=== PATIENT | female | born 1965 | race Caucasian/White ===

== ENCOUNTER 2018-02-16 20:29 | Inpatient (IN) ==
--- NOTE | 2018-02-16 20:57 | Emergency Department Note ---
Disposition Clinical Impression: Acute ischemic stroke Disposition: Admitted As Inpatient Condition: Fair Time of Disposition: 22:19 General Adult HPI - General Chief complaint: ED Neuro Symptoms/Deficit Stated complaint: had mri showed small stroke sent here Time Seen by Provider: 02/16/18 20:39 Source: patient Limitations: no limitations Nursing Notes Reviewed: Yes Vital Signs Reviewed: Yes - History of Present Illness HPI Narrative: Mrs. Escamilla, 52-year-old female, presents from home after a phone call from her primary care physician telling her she has had a stroke and presented to the emergency department. Patient's primary care physician ordered an outpatient MRI for evaluation a history of chronic intractable headache is significantly found a tiny punctate acute infarct in the left thalamus as well as chronic small vessel changes. Patient did not have any focal motor deficit over the past month. Her primary concern is her left occipitally sharp stabbing headache and the finding of a left thalmic acute infarct. PMH: Hypertension, type 2 diabetes poorly controlled per patient. History of chronic migraine. ROS: Positive: Left occipitally headache as above. Negative: Noticeable motor deficit, drooping of face, slurring of speech, difficulty chewing or swallowing, history of cardiac arrhythmia, history of coagulopathy, history of CVA or TIA, history of trauma. No history of ACS. Pain Scale: 6 - Related Data Home Medications Medication Instructions Recorded Confirmed Acetaminophen/Butalbital/Caffe 1 each PO Q6HR PRN 01/30/16 01/30/16 [Fioricet] Albuterol Sulfate [Albuterol 90 mcg IH Q4HR PRN 01/30/16 01/30/16 Inhaler] Aspirin [Adult Low Dose Aspirin EC] 81 mg PO DAILY 01/30/16 01/30/16 Dicyclomine [Bentyl] 20 mg PO QID 01/30/16 01/30/16 Olmesartan/Hydrochlorothiazide 1 each PO DAILY 01/30/16 01/30/16 [Benicar Hct 40-25 mg Tablet] Promethazine [Phenergan] 25 mg PO Q8H PRN 01/30/16 01/30/16 FLUoxetine HCl [Prozac] 20 mg PO DAILY 02/16/18 02/16/18 Topiramate [Topiramate] 25 mg PO HS 02/16/18 02/16/18 Allergies Allergy/AdvReac Type Severity Reaction Status Date / Time cholestyramine AdvReac Mild Vomiting Verified 02/16/18 21:36 clarithromycin [From Biaxin] AdvReac Hives Verified 02/16/18 21:36 colesevelam [From WelChol] AdvReac Hives Verified 02/16/18 21:36 felodipine [From Plendil] AdvReac Hives Verified 02/16/18 21:36 moxifloxacin [From Avelox] AdvReac Hives Verified 02/16/18 21:36 oseltamivir [From Tamiflu] AdvReac See Verified 02/16/18 21:36 Comments oxybutynin [From Ditropan] AdvReac Hives Verified 02/16/18 21:36 rosuvastatin [From Crestor] AdvReac Hives Verified 02/16/18 21:36 tolterodine [From Detrol] AdvReac Hives Verified 02/16/18 21:36 All systems ED: reviewed and negative except as stated. Review of Systems: As Per HPI Past Medical History - Past Medical History Medical history: Reports: asthma, diabetes, GERD, hypertension, migraine Surgical history: Reports: appendectomy, cholecystectomy, hysterectomy, orthopedic, other, other Psychiatric history: Reports: no psych history - Social History Smoking Status: Never smoker Smokeless Tobacco Status: No Alcohol use: Reports: none Drug use: Reports: none Physical Exam Vital Signs Reviewed General: Patient is alert, oriented, and in no acute distress. Head: atraumatic, normocephalic Eye: normal appearance, right pupil 3 mm and round and reactive to light, left pupil 4 mm and round and reactive to light, EOMI, no scleral icterus, no conjunctival injection ENT: mucous membranes moist, normal external ear exam Neck: normal inspection, trachea midline, full ROM Chest: normal inspection, symmetric chest rise Respiratory: Good respiratory effort. Bilateral breath sounds are clear without wheezing, crackles, or rhonchi. Cardiovascular: Regular rate and rhythm. No clicks, rubs, gallops, or murmors. Normal heart sounds. Abdomen: Bowel sounds present normoactive x-4 quadrants. Abdomen is soft, nondistended, and nontender. No guarding or rebound. No organomegaly noted. Musculoskeletal: Spontaneously moving all extremities. Strength 5/5 and equal in upper and lower extremities. Skin: warm, dry, intact. Neuro: Alert and oriented x4. Sensation light touch intact. No limb drift in upper or lower extremities. No pronator drift. Negative finger to nose, negative [id number]. Cranial nerves II through XII intact with very mild decrease in sensation to light touch over left cranial nerve V1, V2, V3. Patient is able to clearly her repeat "no if's, ands, or buts." No slurring of speech. Patient answers questions without hesitation. No facial asymmetry. Psych: Patient's affect is appropriate for situation. - General Limitations: no limitations General appearance: alert, in no apparent distress Course Course Narrative: 20:50 Discussed the patient with the on-call neurologist, Dr. Delgadillo. We discussed the patient's clinical picture and her MRI findings in the context of her headache as well as chronic hypertension and diabetes. Increase remission for continued evaluation and workup. He recommends Plavix 75 mg as well as the patient's daily aspirin at this time. Cardiac echo dated 04/10/17 shows LVEF 65%. I discussed the patient with the admitting hospitalist, Dr. Ragland, who agrees to accept the patient for continued evaluation and management. Vital Signs Temperature 98.1 F 02/16/18 20:34 Pulse Rate 102 02/16/18 20:34 Respiratory Rate 16 02/16/18 20:34 Blood Pressure 176/110 02/16/18 20:34 O2 Sat by Pulse Oximetry 95 02/16/18 20:34 Temperature 98.1 F 02/16/18 20:34 Pulse Rate 102 02/16/18 20:34 Respiratory Rate 16 02/16/18 20:34 Blood Pressure 176/110 02/16/18 20:34 O2 Sat by Pulse Oximetry 95 02/16/18 20:34 Oxygen Delivery Oxygen Delivery Room Air NIH Stroke Scale - Level of Consciousness LOC: Alert - LOC Questions LOC Questions: Answers both correctly - LOC Commands LOC Commands: Performs both correctly - Best Gaze Best Gaze: Normal - Visual Visual: No visual loss - Facial Palsy Facial Palsy: Normal - Motor Arms Motor Arm-Left: No drift for 10 seconds Motor Arm-Right: No drift for 10 seconds - Motor Legs Motor Leg-Left: No drift for 5 seconds Motor Leg-Right: No drift for 5 seconds - Limb Ataxia Limb Ataxia: Absent of affected limb too weak to perform exam - Sensory Sensory: Mild to moderate loss, "not as sharp" - Best Language Best Language: No aphasia - Dysarthria Dysarthria: Normal - Extinction and Inattention Extinction and Inattention: Normal - NIHSS Total Score NIHSS Total Score: 1
[2018-02-16] MEDS ORDERED: Aspirin 81 MG TAB.CHEW PO SCH (21:00)
[2018-02-16 21:37] LABS: Basophils # 0.1 K/mcL (0.0-0.2); Basophils % 0.9 %; Eosinophils # 0.2 K/mcL (0.0-0.6); Eosinophils % 2.5 %; Hematocrit 41.2 % (35.3-44.9); Hemoglobin 13.8 g/dL (11.5-15.4); Immature Granulocytes % 0.3 % (0-4); Lymphocytes # 2.7 K/mcL (0.6-4.6); Lymphocytes % 41.8 %; Mean Corpuscular HGB Conc 33.5 g/dL (31.6-35.5); Mean Corpuscular Hemoglobin 29.3 pg (28.0-33.3); Mean Corpuscular Volume 87.5 fL (83.0-100.0); Mean Platelet Volume 10.1 fL (9.4-12.4); Monocytes # 0.5 K/mcL (0.0-1.3); Monocytes % 7.6 %; Platelet Count 276 K/mcL (140-400); Red Blood Count 4.71 M/mcL (3.82-4.97); Red Cell Distribution Width 12.6 % (11.5-14.5); Segmented Neutrophils % 46.9 %
[2018-02-16 21:45] LABS: Prothrombin Time 11.2 Seconds (9.4-12.1)
[2018-02-16 21:55] LABS: BUN/Creatinine Ratio 21 (6-26); Blood Urea Nitrogen 15 mg/dL (6-20); Calcium 9.8 mg/dL (8.6-10.3); Carbon Dioxide 23 mEq/L (23-29); Chloride 105 mEq/L (98-107); Glucose 208 mg/dL (70-105); Osmolality,Calculated 293 (280-300); Potassium 3.6 mEq/L (3.5-5.1); Sodium 138 mEq/L (136-145); eGFR For African Americans > 60 (> 60); eGFR For Non-African Americans > 60 (> 60)
--- NOTE | 2018-02-16 23:02 | Emergency Department Note ---
Disposition Clinical Impression: Acute ischemic stroke Disposition: Admitted As Inpatient Condition: Fair Forms: ED Satisfaction Letter General Adult HPI - General Chief complaint: ED Neuro Symptoms/Deficit Stated complaint: had mri showed small stroke sent here Time Seen by Provider: 02/16/18 20:39 Source: patient Limitations: no limitations Nursing Notes Reviewed: Yes Vital Signs Reviewed: Yes - History of Present Illness Pain Scale: 6 - Related Data Home Medications Medication Instructions Recorded Confirmed Acetaminophen/Butalbital/Caffe 1 each PO Q6HR PRN 01/30/16 02/16/18 [Fioricet] Albuterol Sulfate [Albuterol 90 mcg IH Q4HR PRN 01/30/16 02/16/18 Inhaler] Aspirin [Adult Low Dose Aspirin EC] 81 mg PO DAILY 01/30/16 02/16/18 Dicyclomine [Bentyl] 20 mg PO QID 01/30/16 02/16/18 Olmesartan/Hydrochlorothiazide 1 each PO DAILY 01/30/16 02/16/18 [Benicar Hct 40-25 mg Tablet] Promethazine [Phenergan] 25 mg PO Q8H PRN 01/30/16 02/16/18 FLUoxetine HCl [Prozac] 20 mg PO DAILY 02/16/18 02/16/18 Topiramate [Topiramate] 25 mg PO HS 02/16/18 02/16/18 Allergies Allergy/AdvReac Type Severity Reaction Status Date / Time cholestyramine AdvReac Mild Vomiting Verified 02/16/18 21:36 clarithromycin [From Biaxin] AdvReac Hives Verified 02/16/18 21:36 colesevelam [From WelChol] AdvReac Hives Verified 02/16/18 21:36 felodipine [From Plendil] AdvReac Hives Verified 02/16/18 21:36 moxifloxacin [From Avelox] AdvReac Hives Verified 02/16/18 21:36 oseltamivir [From Tamiflu] AdvReac See Verified 02/16/18 21:36 Comments oxybutynin [From Ditropan] AdvReac Hives Verified 02/16/18 21:36 rosuvastatin [From Crestor] AdvReac Hives Verified 02/16/18 21:36 tolterodine [From Detrol] AdvReac Hives Verified 02/16/18 21:36 Past Medical History - Past Medical History Medical history: Reports: asthma, diabetes, GERD, hypertension, migraine Surgical history: Reports: appendectomy, cholecystectomy, hysterectomy, orthopedic, other, other Psychiatric history: Reports: no psych history - Social History Smoking Status: Never smoker Smokeless Tobacco Status: No Alcohol use: Reports: none Drug use: Reports: none Physical Exam - General Limitations: no limitations General appearance: alert, in no apparent distress Course Vital Signs Temperature 98.1 F 02/16/18 20:34 Pulse Rate 102 02/16/18 20:34 Respiratory Rate 16 02/16/18 20:34 Blood Pressure 176/110 02/16/18 20:34 O2 Sat by Pulse Oximetry 95 02/16/18 20:34 Temperature 98.1 F 02/16/18 20:34 Pulse Rate 102 02/16/18 20:34 Respiratory Rate 16 02/16/18 20:34 Blood Pressure 176/110 02/16/18 20:34 O2 Sat by Pulse Oximetry 95 02/16/18 20:34 Oxygen Delivery Oxygen Delivery Room Air Medical Decision Making - Lab Data Result diagrams: 02/16/18 21:19 02/16/18 21:19 Lab Results 02/16/18 02/16/18 02/16/18 Range/Units 21:19 21:19 21:19 WBC 6.4 (4.3-11.1) K/mcL RBC 4.71 (3.82-4.97) M/mcL Hgb 13.8 (11.5-15.4) g/dL Hct 41.2 (35.3-44.9) % MCV 87.5 (83.0-100.0) fL MCH 29.3 (28.0-33.3) pg MCHC 33.5 (31.6-35.5) g/dL RDW 12.6 (11.5-14.5) % Plt Count 276 (140-400) K/mcL MPV 10.1 (9.4-12.4) fL Immature Gran % 0.3 (0-4) % Seg Neutrophils % 46.9 % Lymphocytes % 41.8 % Monocytes % 7.6 % Eosinophils % 2.5 % Basophils % 0.9 % Neutrophils # 3.0 (1.6-8.9) K/mcL Lymphocytes # 2.7 (0.6-4.6) K/mcL Monocytes # 0.5 (0.0-1.3) K/mcL Eosinophils # 0.2 (0.0-0.6) K/mcL Basophils # 0.1 (0.0-0.2) K/mcL PT 11.2 (9.4-12.1) Seconds INR 1.0 Sodium 138 (136-145) mEq/L Potassium 3.6 (3.5-5.1) mEq/L Chloride 105 (98-107) mEq/L Carbon Dioxide 23 (23-29) mEq/L BUN 15 (6-20) mg/dL Creatinine 0.71 (0.60-1.20) mg/dL Est GFR ( Amer) > 60 (> 60) Est GFR (Non-Af Amer) > 60 (> 60) BUN/Creatinine Ratio 21 (6-26) Glucose 208 H (70-105) mg/dL Calculated Osmolality 293 (280-300) Calcium 9.8 (8.6-10.3) mg/dL Troponin I (< 0.04) ng/mL B-Natriuretic Peptide (Less than 100) pg/mL 02/16/18 02/16/18 Range/Units 21:19 21:19 WBC (4.3-11.1) K/mcL RBC (3.82-4.97) M/mcL Hgb (11.5-15.4) g/dL Hct (35.3-44.9) % MCV (83.0-100.0) fL MCH (28.0-33.3) pg MCHC (31.6-35.5) g/dL RDW (11.5-14.5) % Plt Count (140-400) K/mcL MPV (9.4-12.4) fL Immature Gran % (0-4) % Seg Neutrophils % % Lymphocytes % % Monocytes % % Eosinophils % % Basophils % % Neutrophils # (1.6-8.9) K/mcL Lymphocytes # (0.6-4.6) K/mcL Monocytes # (0.0-1.3) K/mcL Eosinophils # (0.0-0.6) K/mcL Basophils # (0.0-0.2) K/mcL PT (9.4-12.1) Seconds INR Sodium (136-145) mEq/L Potassium (3.5-5.1) mEq/L Chloride (98-107) mEq/L Carbon Dioxide (23-29) mEq/L BUN (6-20) mg/dL Creatinine (0.60-1.20) mg/dL Est GFR ( Amer) (> 60) Est GFR (Non-Af Amer) (> 60) BUN/Creatinine Ratio (6-26) Glucose (70-105) mg/dL Calculated Osmolality (280-300) Calcium (8.6-10.3) mg/dL Troponin I < 0.03 (< 0.04) ng/mL B-Natriuretic Peptide 7 (Less than 100) pg/mL Attestation Statement - Attestation Attestation: I, Arun Mccurdy, examined this patient and my medical decision-making was reviewed with the OXYGEN SYSTEM TESTER/PA/Advanced Practice Nurse/Resident Physician. I agree with the documented findings, disposition and treatment plan as described except to the extent set forth below. 52-year-old female presents emergency Department after an abnormal MRI obtained as outpatient. Patient states she has had intermittent headaches and paresthesias of her bilateral upper extremities over the past month. Primary care provider ordered an MRI which showed multiple punctate infarcts of the left thalamus as well as a partially empty sella. Patient has no focal neurologic deficits on our exam in the emergency department. Patient comfortable with the plan of action for admission to the hospital for further care and evaluation and risk management for CVA.
[2018-02-17] MEDS ORDERED: Naloxone 0.4 MG/ML INJ IVP PRN (02:54)
[2018-02-17] MEDS ORDERED: Acetaminophen 325 MG TABLET PO PRN (02:54)
[2018-02-17] MEDS ORDERED: *HR* OxyCODONE Immed Rel 5 MG TABLET PO PRN (02:54)
[2018-02-17] MEDS ORDERED: Dextrose Gel 15 GM/37.5 ML TUBE PO PRN ×2 (02:59)
[2018-02-17] MEDS ORDERED: D5% in Water 1,000 ML IVC PRN (02:59)
[2018-02-17] MEDS ORDERED: *HR* Dextrose 50 % in Water (Syg) 50 ML SYRINGE IVP PRN (02:59)
--- NOTE | 2018-02-17 03:04 | Internal Med History&Physical ---
Date of Encounter: 02/17/18 Time of Encounter: 03:42 Internal Medicine - H&P: HPI Chief complaint: My PCP said I have a stroke Admitted From: Home Plans for Post Hospital Care: Home History of present illness: Ms. Escamilla is a 52 year old female with uncontrolled DM and HTN, hx of chronic migraines who presented to her PCP with complains of worsening headaches , L ear tinnitus. She denies speech deficits, nubmness, facial paralysis or focal weakness, she also denies any sensation deficits, but states she feels at some point during the week she had tingling of her finger tips. She was called by her PCP with news of punctate ischemic thalamic CVA. Additionally , MRI showed partially empty sella The patient is ambulatory with no neurologic deficits Her only complain at this time is of L temporal/occipital headache Blood pressure on arrival was elevated, patient was tachycardic during my eval but stated she was also tired and anxious about getting a bed . Work up is otherwise unremarkable EMR shows A1C of 11.8 in 02/01, patient is not on any meds for DM at this time as she is awaiting prior auth for trulicity. She also has allergies to crestor - hives and has not been given any other statin in the past Brain MRI from 02/16/18 noted-tiny acute puncate infarct of L thalamus, partially empty sella, minimal chronic small vessel ischemic disease within the periventricular white matter Past Med Surg Social Fam HX - Past Medical History Medical history: asthma, diabetes, GERD, hypertension, migraine Psychiatric history: no psych history - Past Surgical History Surgical History: appendectomy, cholecystectomy, hysterectomy, orthopedic, other , other - Social History Smoking Status: Never smoker Smokeless Tobacco Status: No Alcohol use: none Drug use: none Internal Medicine - H&P: Meds Acetaminophen/Butalbital/Caffe [Fioricet] 1 each PO Q6HR PRN 01/30/16 [History] Albuterol Sulfate [Albuterol Inhaler] 90 mcg IH Q4HR PRN 01/30/16 [History] Aspirin [Adult Low Dose Aspirin EC] 81 mg PO DAILY 01/30/16 [History] Dicyclomine [Bentyl] 20 mg PO QID 01/30/16 [History] Olmesartan/Hydrochlorothiazide [Benicar Hct 40-25 mg Tablet] 1 each PO DAILY [History] Promethazine [Phenergan] 25 mg PO Q8H PRN 01/30/16 [History] FLUoxetine HCl [Prozac] 20 mg PO DAILY 02/16/18 [History] Topiramate [Topiramate] 25 mg PO HS 02/16/18 [History] 3 Allergy/AdvReac Type Severity Reaction Status Date / Time cholestyramine AdvReac Mild Vomiting Verified 02/16/18 21:36 clarithromycin [From Biaxin] AdvReac Hives Verified 02/16/18 21:36 colesevelam [From WelChol] AdvReac Hives Verified 02/16/18 21:36 felodipine [From Plendil] AdvReac Hives Verified 02/16/18 21:36 moxifloxacin [From Avelox] AdvReac Hives Verified 02/16/18 21:36 oseltamivir [From Tamiflu] AdvReac See Verified 02/16/18 21:36 Comments oxybutynin [From Ditropan] AdvReac Hives Verified 02/16/18 21:36 rosuvastatin [From Crestor] AdvReac Hives Verified 02/16/18 21:36 tolterodine [From Detrol] AdvReac Hives Verified 02/16/18 21:36 All Systems PM: A 10-system review of systems was performed and is negative for pertinent findings except as documented above in the HPI. - Constitutional Constitutional: no chills, no fever(s), no night sweats - EENT Eyes: no change in vision, no discharge, no pain, no photophobia Ears: no ear discharge, no ear pain, no tinnitus Nose, mouth and throat: no dysphagia, no nasal discharge, no neck pain, no sore throat - Cardiovascular Cardiovascular ROS IM: no chest pain, no diaphoresis, no dyspnea, no lightheadedness, no palpitations, no syncope - Respiratory Respiratory: no cough, no dyspnea, no wheezing, no excessive phlegm production - Gastrointestinal Gastrointestinal: no abdominal pain, no diarrhea, no hematemesis, no hematochezia, no melena, no nausea, no vomiting - Genitourinary Genitourinary: no change in urinary stream, no dysuria, no flank pain, no hematuria - Musculoskeletal Musculoskeletal ROS IM: no numbness, no tingling - Integumentary Integumentary IM: no rash, no unusual bruising - Neurological Neurological ROS: as per HPI - Endocrine Endocrine IM: as per HPI - Hematologic/Lymphatic Hematologic/Lymphatic: no easy bruising - Constitutional Vitals: Temp Pulse Resp BP Pulse Ox 98.1 F 102 16 176/110 95 02/16/18 20:34 02/16/18 20:34 02/16/18 20:34 02/16/18 20:34 02/16/18 20:34 General appearance: Present: A&O X 3, pleasant, no acute distress - Head Head exam: Present: atraumatic, normocephalic - Eye Eye exam: Present: PERRL, conjuntiva pink, sclera anicteric Pupils: Present: PERRL - Neck Neck exam general surgery: Present: supple, trachea midline. Absent: lymphadenopathy - Respiratory Respiratory exam: Present: CTAB. Absent: accessory muscle use, rales, rhonchi, wheezes - Cardiovascular Cardiovascular exam: Present: RRR, +S1, +S2. Absent: diastolic murmur, gallop, rubs, systolic murmur - GI/Abdominal GI/Abdominal exam: Present: normal bowel sounds, soft, no peritoneal signs. Absent: distended, tenderness - Extremities Exam Extremities exam: Present: warm, radial pulses palpable and symmetrical. Absent : calf tenderness, cyanotic, pedal edema - Neurological Exam Neurological exam: Present: alert, CN II-XII intact, normal gait, oriented X3, no focal deficits. Absent: pronater drift, facial droop, speech deficit - Skin Skin exam: Present: dry, intact Internal Med - H&P Results - Labs CBC & Chem 7: 02/16/18 21:19 02/16/18 21:19 Labs: Short CBC 02/16/18 Range/Units 21:19 WBC 6.4 (4.3-11.1) K/mcL Hgb 13.8 (11.5-15.4) g/dL Hct 41.2 (35.3-44.9) % Plt Count 276 (140-400) K/mcL Neutrophils # 3.0 (1.6-8.9) K/mcL BMP 02/16/18 21:19 Sodium 138 Potassium 3.6 Chloride 105 Carbon Dioxide 23 BUN 15 Creatinine 0.71 Glucose 208 H Calcium 9.8 Cardiac Enzymes 02/16/18 Range/Units 21:19 Troponin I < 0.03 (< 0.04) ng/mL - Stroke Is the patient on any antithrombotics?: Yes Are there any contradictions to antithrombotics?: No Contraindication Not Initiating IV-Tpa: Not Indicated - NIHSS Score of "Zero" Symptom Onset Unknown: Yes Has Patient Been Evaluated by Rehab for Stroke: No Contraindication Rehab Services Not Assessed: Symptoms Resolved - Assessment and plan (1) Acute ischemic stroke Current Visit: Yes Status: Acute Assessment and plan: No neurologic sequelae Brain MRI from 02/16 noted Per ER, started on Plavix, in addition to home dose of ASA, continue same neurology eval is pending Obtain carotid USS and ECHO No indication for PT or speech eval, patient is ambulatory and no facial droop or speech deficits Continue ASA, Plavix Check lipid panel a.m A1C from 02/01 noted -11 Allergy to statin-crestor, documented as hives Lifestyle modification encouraged (2) Diabetes mellitus Current Visit: Yes Status: Chronic Assessment and plan: Uncontrolled, with hyperglycemia Start basal and correctional dose insulin ADA diet FS ACHS Qualifiers: Diabetes mellitus type: type 2 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: without 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 operator truck driver use Diabetes mellitus complication status: with hyperglycemia Qualified Code(s): E11.65 - Type 2 diabetes mellitus with hyperglycemia (3) Hypertension Current Visit: Yes Status: Chronic Assessment and plan: Uncontrolled on arrival Continue home meds Qualifiers: Hypertension type: essential hypertension Qualified Code(s): I10 - Essential (primary) hypertension (4) Obesity Current Visit: Yes Status: Chronic Assessment and plan: lifestyle modification encouraged Qualifiers: Obesity type: unspecified obesity type Obesity classification: adult class 1 (BMI 30 - 34.9) Serious obesity comorbidity presence: without serious comorbidity Body mass index: BMI 33.0-33.9 Qualified Code(s): E66.9 - Obesity, unspecified; Z68.33 - Body mass index (BMI) 33.0-33.9, adult; Z68.33 - Body mass index (BMI) 33.0-33.9, adult (5) Migraine Current Visit: Yes Status: Chronic Assessment and plan: continue topiramate, tylenol prn Qualifiers: Migraine type: unspecified Status migrainosus presence: without status migrainosus Intractability: not intractable Qualified Code(s): G43.909 - Migraine, unspecified, not intractable, without status migrainosus (6) Empty sella Current Visit: Yes Status: Acute Assessment and plan: partial empty sella TSH from 02/01/18 WNL Check prolactin level endocrinolgy as out-patient Patient's headaches may be due to this - Time Spent With Patient Total time spent is greater than 50% in coordination of care (as documented) at patient's floor/unit and/or counseling patient:
[2018-02-17 03:24] LABS: Chol/HDL Ratio 4.8 (0-4.9); Cholesterol 220 mg/dL (< 200); HDL Cholesterol 46 mg/dL (40-59); LDL Cholesterol,Calculated 113 mg/dL (0-99); Triglycerides 303 mg/dL (< 150)
[2018-02-17] MEDS: *HR* HYDROcodone/Acet 5/325 mg TABLET PO PRN ×2 (04:51→23:03)
--- NOTE | 2018-02-17 08:24 | Event Note ---
Date of Encounter: 02/17/18 Time of Encounter: 08:24 Subjective: Patient seen and examined resting comfortably in bed. She reports mild headache and denies any new c/o this AM. Patient is awaiting carotid doppler and echo today. Physical Exam: General appearance: Present: A&O X 3, no acute distress, answers questions appropriately, pleasant Head exam: Present: atraumatic, normocephalic Eye exam: Present: PERRL, conjuntiva pink, sclera anicteric Neck exam general surgery: Present: supple, trachea midline. Absent: lymphadenopathy Respiratory exam: Present: CTAB. Absent: accessory muscle use, rales, rhonchi, wheezes Cardiovascular exam: Present: RRR, +S1, +S2. Absent: diastolic murmur, gallop, rubs, systolic murmur GI/Abdominal exam: Present: normal bowel sounds, soft, no peritoneal signs, right anterior abd pain stimulator place. Absent: distended, tenderness Extremities exam: Present: warm, radial pulses palpable and symmetrical. Absent : calf tenderness, cyanotic, pedal edema Neurological exam: Present: CN II-XII intact, no focal deficits. Absent: pronater drift, facial droop, speech deficit Skin exam: Present: dry, intact - Assessment and plan (1) Acute ischemic stroke Current Visit: Yes Status: Acute Assessment and plan: No neurologic sequelae Brain MRI from 02/16/18 noted-tiny acute puncate infarct of left thalamus, partially empty sella, minimal chronic small vessel ischemic disease within the periventricular white matter Carotid U/S and ECHO pending PT/ OT consulted to evaluate functional status, considering she did not have any focal motor neurological deficit do not think she would require any physical therapy or any rehabilitation upon discharge Continue ASA, Plavix Started on Plavix, in addition to continuing home dose of ASA Neurology consulted Allergy to statin-crestor, documented as hives. Patient has not been given any other statin in the past. Will trial Lipitor today and monitor of allergic reaction Lifestyle modification encouraged (2) Headache, chronic migraine without aura Current Visit: Yes Status: Chronic Assessment and plan: Her only complain at this time is of left temporal/occipital headache Per neurology, she probably would benefit from preventive agent like beta blockers or AEDs Continue topiramate, tylenol prn Follow-up with neurology as an outpatient Qualifiers: Migraine type: unspecified Status migrainosus presence: without status migrainosus Intractability: not intractable Qualified Code(s): G43.909 - Migraine, unspecified, not intractable, without status migrainosus (3) Empty sella Current Visit: Yes Status: Acute Assessment and plan: Partial empty sella seen on imaging, possible cause of headaches TSH from 02/01/18 WNL Prolactin level WNL Follow up with endocrinology as out-patient (4) Diabetes mellitus Current Visit: Yes Status: Chronic Assessment and plan: Uncontrolled, with hyperglycemia EMR shows A1C of 11.8 in 02/01, patient is not on any meds for DM at this time as she is awaiting prior auth for trulicity. Start basal and correctional dose insulin ADA diet FS ACHS Qualifiers: Diabetes mellitus type: type 2 Diabetes mellitus long-term insulin use: without long-term use Diabetes mellitus complication status: with hyperglycemia Qualified Code(s): E11.65 - Type 2 diabetes mellitus with hyperglycemia (5) Hypertension Current Visit: Yes Status: Chronic Assessment and plan: Uncontrolled on arrival Continue Cozaar Stop HCTZ home med Start BB Qualifiers: Hypertension type: essential hypertension Qualified Code(s): I10 - Essential (primary) hypertension 5) Hyperlipidemia Current Visit: Yes Status: Chronic Assessment and plan: Allergy to statin-crestor, documented as hives. Patient has not been given any other statin in the past. Will trial Lipitor today and monitor of allergic reaction (6) Obesity Current Visit: Yes Status: Chronic Assessment and plan: Lifestyle modification encouraged Qualifiers: Obesity type: unspecified obesity type Obesity classification: adult class 1 (BMI 30 - 34.9) Serious obesity comorbidity presence: without serious comorbidity Body mass index: BMI 33.0-33.9 Qualified Code(s): E66.9 - Obesity, unspecified; Z68.33 - Body mass index (BMI) 33.0-33.9, adult; Z68.33 - Body mass index (BMI) 33.0-33.9, adult (7) DVT prophylaxis Current Visit: Yes Status: Acute Assessment and plan: EPCD Case discussed with and plan agreed upon with Dr. Vale.
[2018-02-17] MEDS ORDERED: hydroCHLOROthiazide 25 MG TABLET PO SCH (09:00)
[2018-02-17] MEDS: Aspirin Enteric Coated 81 MG Tablet PO SCH (10:08)
[2018-02-17] MEDS: FLUoxetine 20 MG CAPSULE PO SCH (10:09)
[2018-02-17] MEDS: Insulin LISPRO 300 UNITS/3 ML VIAL SQ SCH ×3 (10:09→16:52)
--- NOTE | 2018-02-17 14:01 | Neurology - Consult Note ---
Date of Encounter: 02/17/18 Time of Encounter: 07:30 Assessment and Plan (1) Acute ischemic stroke Current Visit: Yes Status: Acute This patient who has an history of hypertension and diabetes noted to have an acute left thalamic infarct likely in a small vessel disease secondary to underlying this factors of hypertension and diabetes. Clinically she did not have any signs and symptoms office stroke certainly she has risk factors she would require workup for the stroke including echocardiogram as well as carotid duplex also monitor for any cardiac arrhythmias and at the same time check for lipid profile. She would continue on antiplatelet therapy started in the emergency room. Next line of the same time she would benefit from statin as well. Considering she did not have any focal motor neurological deficit do not think she would require any physical therapy or any rehabilitation (2) Headache, chronic migraine without aura Current Visit: Yes Status: Acute Patient has not history of chronic migraine headaches having quite frequently probably would benefit some preventive agent like beta blockers or perhaps AEDs like Topamax she would need a follow-up with neurology as an outpatient as well Qualifiers: Status migrainosus presence: without status migrainosus Intractability: not intractable Qualified Code(s): G43.709 - Chronic migraine without aura, not intractable, without status migrainosus History of Present Illness HPI: Ms. Escamilla is a 52 year old female with uncontrolled DM and HTN, hx of chronic migraines who presented to her PCP with complains of worsening headaches , L ear tinnitus.out pt MRI showed new punctate ischemic left thalamic CVA. Additionally , MRI showed partially empty sella pt only symptoms was L temporal/occipital headache, as she has a history of chronic headache has been getting it quite frequently and that was a reason to get an MRI as an outpatient. Blood pressure on arrival was elevated, patient was tachycardic patient is not on any meds for DM at this time as she is awaiting prior auth for trulicity. She denies any focal motor weakness any visual symptoms any difficulty with his speech or any difficulty with a gait and balance Past Med Surg Social Fam HX - Past Medical History Medical history: asthma, diabetes, GERD, hypertension, migraine Psychiatric history: no psych history - Past Surgical History Surgical History: appendectomy, cholecystectomy, hysterectomy, orthopedic, other , other - Social History Smoking Status: Never smoker Smokeless Tobacco Status: No Alcohol use: none Drug use: none - Family History Mother Living Status: Age at : 72 Cause of : broken hip, failure to thrive Hx Family Cardiac Disorders: Yes ([place], stents) Hx Family Cancer: No Hx Family GI Disorders: Yes (IBS) Hx Family Genitourinary Disorders: Yes (KIDNEY STONES, UTI'S) Hx Family Endocrine Disorder: No Hx Family Musculoskeletal Disorders: Yes (RHEUMATOID ARTHRITIS) Hx Family Neuromuscular Disorders: No Hx Family Neurologic Disorders: Yes (DEMENTIA) Hx Family Autoimmune Disorders: Yes (PSORIASIS) Hx Family Reproductive Disorders: Yes (HYSTERECTOMY AT 31 YO) Hx Family Medical Disorders: Yes (DVT) Father Living Status: Age at : 78 Cause of : CHF Hx Family Cardiac Disorders: Yes (CHF, [place] AT 38, CABG AT 42) Hx Family Respiratory Disorders: Yes (COPD) Hx Family Cancer: No Hx Family GI Disorders: No Hx Family Genitourinary Disorders: No Hx Family Endocrine Disorder: No Hx Family Musculoskeletal Disorders: No Hx Family Neuromuscular Disorders: No Hx Family Neurologic Disorders: Yes (TIA'S) Hx Family HEENT Disorders: No Hx Family Autoimmune Disorders: No Hx Family Reproductive Disorders: No Hx Family Psychosocial Disorders: No Hx Family Medical Disorders: No Medications and Allergies Acetaminophen/Butalbital/Caffe [Fioricet] 1 each PO Q6HR PRN 01/30/16 [History] Albuterol Sulfate [Albuterol Inhaler] 90 mcg IH Q4HR PRN 01/30/16 [History] Aspirin [Adult Low Dose Aspirin EC] 81 mg PO DAILY 01/30/16 [History] Dicyclomine [Bentyl] 20 mg PO QID 01/30/16 [History] Olmesartan/Hydrochlorothiazide [Benicar Hct 40-25 mg Tablet] 1 each PO DAILY [History] Promethazine [Phenergan] 25 mg PO Q8H PRN 01/30/16 [History] FLUoxetine HCl [Prozac] 20 mg PO DAILY 02/16/18 [History] Topiramate [Topiramate] 25 mg PO HS 02/16/18 [History] 3 Allergy/AdvReac Type Severity Reaction Status Date / Time cholestyramine AdvReac Mild Vomiting Verified 02/16/18 21:36 clarithromycin [From Biaxin] AdvReac Hives Verified 02/16/18 21:36 colesevelam [From WelChol] AdvReac Hives Verified 02/16/18 21:36 felodipine [From Plendil] AdvReac Hives Verified 02/16/18 21:36 moxifloxacin [From Avelox] AdvReac Hives Verified 02/16/18 21:36 oseltamivir [From Tamiflu] AdvReac See Verified 02/16/18 21:36 Comments oxybutynin [From Ditropan] AdvReac Hives Verified 02/16/18 21:36 rosuvastatin [From Crestor] AdvReac Hives Verified 02/16/18 21:36 tolterodine [From Detrol] AdvReac Hives Verified 02/16/18 21:36 All Systems: The remainder of the systems were reviewed and are negative Physical Examination - Vital Signs Vital Signs: Initial Vital Signs Temp Pulse Resp BP Pulse Ox 98.1 F 102 16 176/110 95 02/16/18 20:34 02/16/18 20:34 02/16/18 20:34 02/16/18 20:34 02/16/18 20:34 - Exam Exam: GENERAL: Comfortable in no acute distress HEENT: Normal LUNGS: CTA HEART: RRR, S1 S2 Audible, no murmur EXTREMITIES: No Pedal edema. DETAILED NEUROLOGICAL EXAMINATION: MENTAL STATUS: Oriented to person, place, date and situation. Memory: knows the President, Aware of recent events Recent Memory Intact Cranial Nerve Examination: CN - II: Visual Acuity, Field of Vision Normal, Fundus examination: No disk edema, Pupils- size shape reaction to light and accommodation: All normal. CN III, IV, : External ocular movements were intact, Pupils were reactive, Nodrooping of the eyelids CN V: Sensation over the face to light touch and pinprick all normal. Corneal reflexes not tested, jaw jerk normal. CN VII: No facial asymmetry, no flattening of nasolabial folds, no difficulty in closing the eyes, no loss of forehead wrinkles, no difficulty in eye-closure, frowning raising eyebrows. CNVIII: No significant hearing loss CN IX, X: Uvula centralized not deviated, Gag reflex: Not tested CN X1: Sternocleidomastoid, trapezius, normal or evidence of any weakness. CN X11: No Dysarthria, no wasting or fibrilation f tongue muscles, no deviation, tongue muscle strength normal. Motor examination: No hypertrophy, tone was normal, power grade 0-5 Upper limbs Proximal- No difficulty in lifting the arms above the head. Distal- Noweakness in distal muscles On formal testing 5/5 all over Lower limbs Proximal- No difficulty in getting up from the sitting position Distal- No difficulty in walking On formal testing 5/5 all over Coordination: [id number] normal. Target pursuit normal finger tapping normal, Rapid alternating moment of wrist normal Sensory system: Superficial sensations- Touch normal. Pain- Pinprick, Temperature all normal, Deep sensation normal, Joint position sense normal. Cortical sensation, Tactile discrimination, localization and extinction all normal. Deep tendon reflexes. Symmetrical bilateral, No evidence of Babinski. No sign of meningeal irritation Gait Examination: Deferred Results - Laboratory Findings CBC and BMP: 02/16/18 21:19 02/16/18 21:19 Abnormal lab findings: Abnormal lab results Glucose 208 mg/dL (70-105) H 02/16/18 21:19 Triglycerides 303 mg/dL (< 150) H 02/16/18 21: Cholesterol 220 mg/dL (< 200) H 02/16/18 21:19 LDL Cholesterol, Calc 113 mg/dL (0-99) H 02/16/18 21:19 VLDL Cholesterol, Calc 61 mg/dL (< 31) H 02/16/18 21:19 Consult Discharge Plan - Plan Referrals: Nilda Torre, [employer] [Primary Care Provider] -
[2018-02-17 15:49] LABS: Estimated Average Glucose 275 mg/dl; Hemoglobin A1C 11.2 %
[2018-02-17] MEDS ORDERED: Perflutren Lipid Microsphere 1.3 ML in 0.9 % Sodium Chloride 8.7 ML IVP ONE (17:28)
[2018-02-17] MEDS ORDERED: Insulin LISPRO 300 UNITS/3 ML VIAL SQ SCH (21:00)
[2018-02-17] MEDS ORDERED: Topiramate 25 MG TABLET PO SCH (21:00)
[2018-02-17] MEDS ORDERED: Insulin DETEMIR 100 UNIT/ML X5UNITS SQ SCH (21:00)
[2018-02-18 05:38] LABS: Hematocrit 39.3 % (35.3-44.9); Hemoglobin 12.8 g/dL (11.5-15.4); Mean Corpuscular HGB Conc 32.6 g/dL (31.6-35.5); Mean Corpuscular Hemoglobin 28.6 pg (28.0-33.3); Mean Corpuscular Volume 87.9 fL (83.0-100.0); Mean Platelet Volume 10.4 fL (9.4-12.4); Platelet Count 255 K/mcL (140-400); Red Blood Count 4.47 M/mcL (3.82-4.97); Red Cell Distribution Width 12.7 % (11.5-14.5)
[2018-02-18 05:55] LABS: BUN/Creatinine Ratio 26 (6-26); Blood Urea Nitrogen 16 mg/dL (6-20); Calcium 9.2 mg/dL (8.6-10.3); Carbon Dioxide 26 mEq/L (23-29); Chloride 104 mEq/L (98-107); Glucose 191 mg/dL (70-105); Osmolality,Calculated 292 (280-300); Potassium 3.4 mEq/L (3.5-5.1); Sodium 138 mEq/L (136-145); eGFR For African Americans > 60 (> 60); eGFR For Non-African Americans > 60 (> 60)
[2018-02-18 06:56] VITALS: BP 117/76
[2018-02-18] MEDS: Insulin LISPRO 300 UNITS/3 ML VIAL SQ SCH ×2 (08:51→12:01)
[2018-02-18] MEDS: Aspirin Enteric Coated 81 MG Tablet PO SCH (08:53)
[2018-02-18] MEDS: FLUoxetine 20 MG CAPSULE PO SCH (08:53)
--- NOTE | 2018-02-18 09:51 | Vascular/Endovasc Consult Note ---
Date of Encounter: 02/18/18 Time of Encounter: 09:48 Assessment and Plan (1) Bilateral carotid artery stenosis Current Visit: Yes Status: Acute Patient has 60-79% stenosis on one internal carotid artery and 40-59% on the other. The infarction she suffered is in the thalamic region and does not appear to be of the anterior circulation at this time. The patient is recovering well. I reviewed with her in great detail the natural history of carotid artery disease. I explained the need for further follow-up as an outpatient with carotid scanning. I will ask the patient to return to see me in 6 months with a follow-up duplex scan prior to her office visit. (2) Acute ischemic stroke Current Visit: Yes Status: Acute Abnormal MRI with focal left thalamic ischemic infarction. (3) Diabetes mellitus Current Visit: Yes Status: Chronic Poorly controlled diabetes. I explained to the patient the need for careful risk factor reduction. 14 she is not a tobacco user. I explained the need for controlling her blood pressure and cholesterol as well as the diabetes and that she would require lipid therapy. (4) Hypertension Current Visit: Yes Status: Chronic Patient under medical treatment. Qualifiers: Hypertension type: essential hypertension Qualified Code(s): I10 - Essential (primary) hypertension (5) Obesity Current Visit: Yes Status: Chronic Patient states that she had gained weight due to depression and the loss of her parents over a short amount of time. The patient is aware that this is an issue. I stressed the need for weight loss in order to better control her vascular risk factors. Qualifiers: Obesity type: unspecified obesity type Obesity classification: adult class 1 (BMI 30 - 34.9) Serious obesity comorbidity presence: without serious comorbidity Body mass index: BMI 33.0-33.9 Qualified Code(s): E66.9 - Obesity, unspecified; Z68.33 - Body mass index (BMI) 33.0-33.9, adult; Z68.33 - Body mass index (BMI) 33.0-33.9, adult - History of Present Illness Consult date: 02/18/18 Requesting physician: Rosanne Delgadillo Consult reason: Lacunar stroke and carotid stenosis Chief complaint: Dizziness and headaches History of present illness: Ms. Escamilla is a 52 year old female Who was admitted 2 days ago because of an abnormal MRI. The patient had noted to her primary care provider dizziness and falls and headache. This led to an outpatient MRI performed on the of this month. This demonstrated a small and focal left thalamic ischemic CVA. The patient had also noted right ear tinnitus. She was admitted for further evaluation. She was found to have poorly controlled diabetes with hemoglobin A1c of greater than 11. The patient has multiple risk factors for vascular disease including hypertension, diabetes, and hyperlipidemia. Patient also has a strong family history. Her father had open heart surgery in his 40s. He also had carotid disease and required a carotid endarterectomy. He of congestive heart failure. He also had an aunt who at an early age from coronary artery disease. During this hospitalization the patient underwent duplex scanning. The results are in the chart and demonstrated 6079% internal carotid artery stenosis on one side and a 40-59% stenosis on the other. The patient has not had previous duplex scanning. The patient does not have active symptoms to suggest TIAs or amaurosis fugax. Past Med Surg Social Fam HX - Past Medical History Medical history: asthma, diabetes, GERD, hypertension, migraine Psychiatric history: no psych history - Past Surgical History Surgical History: appendectomy, cholecystectomy, hysterectomy, orthopedic, other , other - Social History Smoking Status: Never smoker Smokeless Tobacco Status: No Alcohol use: none Drug use: none - Family History Mother Living Status: Age at : 72 Cause of : broken hip, failure to thrive Hx Family Cardiac Disorders: Yes ([place], stents) Hx Family Cancer: No Hx Family GI Disorders: Yes (IBS) Hx Family Genitourinary Disorders: Yes (KIDNEY STONES, UTI'S) Hx Family Endocrine Disorder: No Hx Family Musculoskeletal Disorders: Yes (RHEUMATOID ARTHRITIS) Hx Family Neuromuscular Disorders: No Hx Family Neurologic Disorders: Yes (DEMENTIA) Hx Family Autoimmune Disorders: Yes (PSORIASIS) Hx Family Reproductive Disorders: Yes (HYSTERECTOMY AT 31 YO) Hx Family Medical Disorders: Yes (DVT) Father Living Status: Age at : 78 Cause of : CHF Hx Family Cardiac Disorders: Yes (CHF, [place] AT 38, CABG AT 42) Hx Family Respiratory Disorders: Yes (COPD) Hx Family Cancer: No Hx Family GI Disorders: No Hx Family Genitourinary Disorders: No Hx Family Endocrine Disorder: No Hx Family Musculoskeletal Disorders: No Hx Family Neuromuscular Disorders: No Hx Family Neurologic Disorders: Yes (TIA'S) Hx Family HEENT Disorders: No Hx Family Autoimmune Disorders: No Hx Family Reproductive Disorders: No Hx Family Psychosocial Disorders: No Hx Family Medical Disorders: No Medications and Allergies Acetaminophen/Butalbital/Caffe [Fioricet] 1 each PO Q6HR PRN 01/30/16 [History] Albuterol Sulfate [Albuterol Inhaler] 90 mcg IH Q4HR PRN 01/30/16 [History] Aspirin [Adult Low Dose Aspirin EC] 81 mg PO DAILY 01/30/16 [History] Dicyclomine [Bentyl] 20 mg PO QID 01/30/16 [History] Olmesartan/Hydrochlorothiazide [Benicar Hct 40-25 mg Tablet] 1 each PO DAILY [History] Promethazine [Phenergan] 25 mg PO Q8H PRN 01/30/16 [History] FLUoxetine HCl [Prozac] 20 mg PO DAILY 02/16/18 [History] Topiramate [Topiramate] 25 mg PO HS 02/16/18 [History] 3 Allergy/AdvReac Type Severity Reaction Status Date / Time rosuvastatin [From Crestor] Allergy Severe Anaphylaxis Verified 02/17/18 23:17 cholestyramine AdvReac Mild Vomiting Verified 02/16/18 21:36 clarithromycin [From Biaxin] AdvReac Hives Verified 02/16/18 21:36 colesevelam [From WelChol] AdvReac Hives Verified 02/16/18 21:36 felodipine [From Plendil] AdvReac Hives Verified 02/16/18 21:36 moxifloxacin [From Avelox] AdvReac Hives Verified 02/16/18 21:36 oseltamivir [From Tamiflu] AdvReac See Verified 02/16/18 21:36 Comments oxybutynin [From Ditropan] AdvReac Hives Verified 02/16/18 21:36 tolterodine [From Detrol] AdvReac Hives Verified 02/16/18 21:36 All Systems Review: The remainder of the systems were reviewed and are negative Exam Vital Signs, Last 4 Hours Temp Pulse Resp BP Pulse Ox 02/18/18 06:51 98.1 F 75 16 117/76 96 General: Present: Conversant, No Apparent Distress, Well developed, Well nourished HEENT: Present: Atraumatic, Normocephaly, Trachea midline Neck: Absent: JVD, Left Carotid bruit, Right Carotid bruit, Midline deformity, Tracheal deviation, Thyromegaly Cardiac: Present: Reg Rate and Rhythm, Normal S1 and S2, No Murmur Lungs: Present: Normal Breath Sounds, No Wheeze, Rales, Rhonchi Neuro: Present: Alert and responsive, No focal deficits noted, Cranial nerves grossly intact, Motor nerves grossly intact, Sensory nerves grossly intact Abdomen: Present: Soft, Non-tender Vascular: Present: Normal capillary refill, Pulse, normal. Absent: Clubbing, Cyanosis, Edema, Amputation(s) Skin: Present: No rashes noted on visualized skin Musculoskeletal: Present: No Chest Wall Tenderness Consult Discharge Plan - Plan Referrals: Nilda Torre CNP [Primary Care Provider] - Jhoan Johnson MD [Partnered Physician] - (Follow-up with Dr. Johnson in vascular surgery clinic in 6 months. Patient is to have a repeat carotid artery duplex scan prior to her office visit.)
--- NOTE | 2018-02-18 09:59 | Neurology Progress Note ---
Date of Encounter: 02/18/18 Time of Encounter: 07:15 Assessment and Plan (1) Acute ischemic stroke Current Visit: Yes Status: Acute Patient also found to have a bilateral carotid stenosis left severe about 79% right about 59%. She did not have any active symptoms seems to be asymptomatic stenosis I suggest medical management follow-up imaging in 6 month also recommend vascular surgery evaluation She probably need to be on statin therapy with Lipitor along with the Plavix 75 mg daily If echocardiogram is negative patient could be discharged from neurology standpoint with follow-up with vascular surgery as well as with the primary care (2) Headache, chronic migraine without aura Current Visit: Yes Status: Acute Qualifiers: Status migrainosus presence: without status migrainosus Intractability: not intractable Qualified Code(s): G43.709 - Chronic migraine without aura, not intractable, without status migrainosus Subjective Interval history: Agent seen as an follow-up she seemed to be doing better no clinical symptoms during the workup she was found to have bilateral carotid stenosis with the right side about 60-79% and left is about 59%. She is not on any statins only on antiplatelet therapy she is allergic to Crestor Objective - Constitutional Vitals: Temp Pulse Resp BP Pulse Ox 98.1 F 75 16 117/76 96 02/18/18 06:51 02/18/18 06:51 02/18/18 06:51 02/18/18 06:51 02/18/18 06:51 - Neurological Exam Sensorimotor examination: Present: intact Motor Examination: Present: grossly full strength in all extremities Sensation intact: Present: intact Reflex and gait examination: intact Mental Status Examination: Present: awake, alert, oriented to person Cranial nerve examination: Present: PERRL, EOMI, visual tariq intact, no facial asymmetry is present, no dysarthria - Stroke Is the patient on any antithrombotics?: No Are there any contradictions to antithrombotics?: No Contraindication Not Initiating IV-Tpa: Not Indicated - NIHSS Score of "Zero" Contraindication Rehab Services Not Assessed: Symptoms Resolved - VTE Documentation of Mechanical Device: Intermittent pneumatic compression device Results - Laboratory Findings CBC and BMP: 02/18/18 05:12 02/18/18 05:12 Abnormal lab findings: Abnormal lab results Potassium 3.4 mEq/L (3.5-5.1) L 02/18/18 05:12 Glucose 191 mg/dL (70-105) H 02/18/18 05:12 POC Glucose 191 mg/dL (70-99) H 02/17/18 16:40 Hemoglobin A1c 11.2 % (-5.6) H 02/16/18 21:19 Triglycerides 303 mg/dL (< 150) H 02/16/18 21:19 Cholesterol 220 mg/dL (< 200) H 02/16/18 21:19 LDL Cholesterol, Calc 113 mg/dL (0-99) H 02/16/18 21:19 VLDL Cholesterol, Calc 61 mg/dL (< 31) H 02/16/18 21:19 Consult Discharge Plan - Plan Referrals: Nilda Torre CNP [Primary Care Provider] - Jhoan Johnson MD [Partnered Physician] - (Follow-up with Dr. Johnson in vascular surgery clinic in 6 months. Patient is to have a repeat carotid artery duplex scan prior to her office visit.)
[2018-02-18] MEDS ORDERED: Potassium Chloride 20 MEQ, Lidocaine 1% 2 ML in D5% in Water 250 ML IVPB ONE (10:01)
[2018-02-18] MEDS ORDERED: Potassium Chloride Elixir 20 MEQ/15 ML UDC PO SCH (10:15)
--- NOTE | 2018-02-18 10:19 | Discharge Summary ---
<Rafael Lee - Last Filed: 02/18/18 14:08> Date of Encounter: 02/18/18 Time of Encounter: 10:15 - Discharge Diagnosis (1) Acute ischemic stroke Priority: Primary Status: Acute (2) Diabetes mellitus Priority: Secondary Status: Chronic Qualifiers: Diabetes mellitus type: type 2 Diabetes mellitus snf insulin use: without intermediate accountant use Diabetes mellitus complication status: with neurologic complications Diabetes mellitus complication detail: with other neurological complication Qualified Code(s): E11.49 - Type 2 diabetes mellitus with other diabetic neurological complication (3) Hypertension Priority: Secondary Status: Chronic Qualifiers: Hypertension type: essential hypertension Qualified Code(s): I10 - Essential (primary) hypertension (4) Obesity Priority: Secondary Status: Chronic Qualifiers: Obesity type: unspecified obesity type Obesity classification: adult class 1 (BMI 30 - 34.9) Serious obesity comorbidity presence: without serious comorbidity Body mass index: BMI 33.0-33.9 Qualified Code(s): E66.9 - Obesity, unspecified; Z68.33 - Body mass index (BMI) 33.0-33.9, adult; Z68.33 - Body mass index (BMI) 33.0-33.9, adult (5) Migraine Priority: Secondary Status: Chronic Qualifiers: Migraine type: unspecified Status migrainosus presence: without status migrainosus Intractability: not intractable Qualified Code(s): G43.909 - Migraine, unspecified, not intractable, without status migrainosus (6) Empty sella Priority: Secondary Status: Acute (7) Bilateral carotid artery stenosis Priority: Primary Status: Acute Hospital course: Ms. Escamilla is a 52 year old female with history of uncontrolled DM and HTN, chronic migraines, presented to PCP with complains of worsening headaches, L ear tinnitus. PCP called her with news of punctate ischemic thalamic CVA. MRI showed partially empty sella. Patient was admitted for acute puncate infarct of L thalamus, partially empty sella, minimal chronic small vessel ischemic disease within periventricular white matter. Carotid duplex demonstrated 40-59% Right proximal ICA occlusion, 60-79% medial Right ICA occlusion, 40-59% L ICA proximal occlusion. Echo with EF 65% and borderline increased LV wall thickness and normal wall motion. Statin was not given last night due to allergies. Plan to discharge patient with losartan, plavix, lipitor. Importance of medication compliance was explained. Patient is to follow up with Dr. Delgadillo for bilateral carotid stenosis and PCP in regards to better diabetic management. Patient understands treatment plan. Signs of stroke and red flags explained. Patient expresses understanding and is agreeable to treatment plan. - Time Spent with Patient Total time spent providing and/or coordinating discharge services: Greater than 30 minutes - Discharge Medications Prescriptions: Atorvastatin [Lipitor] 40 mg PO HS #30 tablet Clopidogrel [Plavix] 75 mg PO DAILY #30 tablet Losartan [Cozaar] 100 mg PO DAILY #30 tablet Home Medications: Acetaminophen/Butalbital/Caffe [Fioricet] 1 each PO Q6HR PRN 01/30/16 [History] Albuterol Sulfate [Albuterol Inhaler] 90 mcg IH Q4HR PRN 01/30/16 [History] Aspirin [Adult Low Dose Aspirin EC] 81 mg PO DAILY 01/30/16 [History] Dicyclomine [Bentyl] 20 mg PO QID 01/30/16 [History] Olmesartan/Hydrochlorothiazide [Benicar Hct 40-25 mg Tablet] 1 each PO DAILY [History] Promethazine [Phenergan] 25 mg PO Q8H PRN 01/30/16 [History] FLUoxetine HCl [Prozac] 20 mg PO DAILY 02/16/18 [History] Topiramate 25 mg PO HS 02/16/18 [History] Atorvastatin [Lipitor] 40 mg PO HS #30 tablet 02/18/18 [Rx] Clopidogrel [Plavix] 75 mg PO DAILY #30 tablet 02/18/18 [Rx] Losartan [Cozaar] 100 mg PO DAILY #30 tablet 02/18/18 [Rx] Allergies/Adverse Reactions: 3 Allergy/AdvReac Type Severity Reaction Status Date / Time rosuvastatin [From Crestor] Allergy Severe Anaphylaxis Verified 02/17/18 23:17 cholestyramine AdvReac Mild Vomiting Verified 02/16/18 21:36 clarithromycin [From Biaxin] AdvReac Hives Verified 02/16/18 21:36 colesevelam [From WelChol] AdvReac Hives Verified 02/16/18 21:36 felodipine [From Plendil] AdvReac Hives Verified 02/16/18 21:36 moxifloxacin [From Avelox] AdvReac Hives Verified 02/16/18 21:36 oseltamivir [From Tamiflu] AdvReac See Verified 02/16/18 21:36 Comments oxybutynin [From Ditropan] AdvReac Hives Verified 02/16/18 21:36 tolterodine [From Detrol] AdvReac Hives Verified 02/16/18 21:36 Date of admission: 02/17/18 13:23 Primary care physician: Nilda Torre CNP Consults: 02/17/18 15:55 PT [Consult to Physical Therapy] [CONS] Routine Comment: Evaluate, develop and implement POC Reason for Consult: CVA Does patient have active BEDREST order?: No Is patient medically & hemodynamically stable?: Yes Patient assessed for mobility or mobilized this visit?: No 02/18/18 09:48 Consult to Vascular Surgery [CONS] Routine Consulting Provider: Vascular Surgery Rodessa Reason for Consult: left ICA stenosis 60-79% Dr Johnson notified Time Notified: 09:51 Call Completed: Yes Discharging clinician: Rafael Lee Anticipated date of discharge: 02/18/18 - Constitutional Vitals: Temp Pulse Resp BP Pulse Ox 98.1 F 75 16 117/76 96 02/18/18 06:51 02/18/18 06:51 02/18/18 06:51 02/18/18 06:51 02/18/18 06:51 General appearance: Present: A&O X 3, pleasant, no acute distress - Head Head exam: Present: atraumatic, normocephalic - Eye Eye exam: Present: normal appearance, conjuntiva pink, sclera anicteric - Neck Neck exam general surgery: Present: full ROM, supple, trachea midline. Absent: lymphadenopathy - Respiratory Respiratory exam: Present: CTAB. Absent: accessory muscle use, rales, rhonchi, wheezes - Cardiovascular Cardiovascular exam: Present: distant heart sounds, +S1, +S2. Absent: diastolic murmur, gallop, rubs, systolic murmur - GI/Abdominal GI/Abdominal exam: Present: normal bowel sounds, soft, no peritoneal signs. Absent: distended, tenderness - Extremities Exam Extremities exam: Present: warm, radial pulses palpable and symmetrical. Absent : calf tenderness, cyanotic, pedal edema - Neurological Exam Neurological exam: Present: CN II-XII intact, oriented X3, no focal deficits. Absent: pronater drift, facial droop, speech deficit - Skin Skin exam: Present: dry, intact - Patient Status Disposition: Home, Self-Care Condition: Fair Functional capacity at discharge: independent ambulation Overall status at discharge: patient is back to baseline - Discharge Instructions Instructions: Clopidogrel (By mouth), Diabetes Mellitus Type 2 in Adults (DC), Ischemic Stroke (DC) Follow Up With: Nilda Torre CNP [Primary Care Provider] - (appt requested ) Jhoan Johnson MD [Partnered Physician] - (Follow-up with Dr. Johnson in vascular surgery clinic in 6 months. Patient is to have a repeat carotid artery duplex scan prior to her office visit.) - Diet and Activity Activity: resume usual activities as tolerated Diet: advance to your usual diet - Stroke Is the patient on any antithrombotics?: Yes Are there any contradictions to antithrombotics?: No Contraindication Not Initiating IV-Tpa: Not Indicated - NIHSS Score of "Zero" Contraindication Rehab Services Not Assessed: Symptoms Resolved - VTE Documentation of Mechanical Device: Intermittent pneumatic compression device <Jaiden Vale - Last Filed: 02/18/18 14:57> Date of Encounter: 02/18/18 - Discharge Diagnosis (1) Acute ischemic stroke Status: Acute (2) Diabetes mellitus Status: Chronic Qualifiers: Diabetes mellitus type: type 2 Diabetes mellitus intermediate accountant insulin use: without snf use Diabetes mellitus complication status: with neurologic complications Diabetes mellitus complication detail: with other neurological complication Qualified Code(s): E11.49 - Type 2 diabetes mellitus with other diabetic neurological complication (3) Hypertension Status: Chronic Qualifiers: Hypertension type: essential hypertension Qualified Code(s): I10 - Essential (primary) hypertension (4) Obesity Status: Chronic Qualifiers: Obesity type: unspecified obesity type Obesity classification: adult class 1 (BMI 30 - 34.9) Serious obesity comorbidity presence: without serious comorbidity Body mass index: BMI 33.0-33.9 Qualified Code(s): E66.9 - Obesity, unspecified; Z68.33 - Body mass index (BMI) 33.0-33.9, adult; Z68.33 - Body mass index (BMI) 33.0-33.9, adult (5) Migraine Status: Chronic Qualifiers: Migraine type: unspecified Status migrainosus presence: without status migrainosus Intractability: not intractable Qualified Code(s): G43.909 - Migraine, unspecified, not intractable, without status migrainosus (6) Empty sella Status: Acute (7) Bilateral carotid artery stenosis Status: Acute Hospital course: Ms. Escamilla is a 52 year old female - Time Spent with Patient Total time spent providing and/or coordinating discharge services: Date of admission: 02/17/18 13:23 Primary care physician: Nilda Torre CNP Consults: 02/17/18 15:55 PT [Consult to Physical Therapy] [CONS] Routine Comment: Evaluate, develop and implement POC Reason for Consult: CVA Does patient have active BEDREST order?: No Is patient medically & hemodynamically stable?: Yes Patient assessed for mobility or mobilized this visit?: No 02/18/18 09:48 Consult to Vascular Surgery [CONS] Routine Consulting Provider: Vascular Surgery Jennifer Reason for Consult: left ICA stenosis 60-79% Dr Johnson notified Time Notified: 09:51 Call Completed: Yes - Constitutional Vitals: Temp Pulse Resp BP Pulse Ox 98.1 F 75 16 117/76 96 02/18/18 06:51 02/18/18 06:51 02/18/18 06:51 02/18/18 06:51 02/18/18 06:51 - Attending Attestation Performed an independent interview and examine this patient. I agree with the findings, assessment, and plan of Dr. Lee, internal medicine internal controls specialist. My input is reflected in his note. She is stable for discharge. A total of 39 minutes was spent on discharge and coordination of care. Vascular surgery input noted and appreciated. Patient has moderate carotid stenosis and will need follow-up as outpatient. She will continue on losartan, Plavix, Lipitor. She will need follow-up lipid panel in 4-6 weeks. She will also need improvement in her diabetes control and will follow up with her primary care provider. Addendum entered and electronically signed by Rafael Lee DO 02/18/18 14:25: Patient is allergic to statin. She is to follow-up with her PCP in regards to statin use.
--- NOTE | 2018-02-19 15:35 | Electrocardiograph Report ---
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
== END 2018-02-18 14:20 | disposition home or self-care (01) | DRG 66 ==
LOC: 2NENU 20:29 → EMEROO 20:29 → 2NENU 02-17 03:41
PROVIDERS: ADMIT Internal Medicine; ATTEND Hospitalist

== ENCOUNTER 2019-02-07 06:11 | Inpatient (IN) ==
[2019-02-07] MEDS ORDERED: CeFAZolin Syr 2,000MG/20 ML 2,000 MG/20 ML SYRINGE IVPB ONE (06:31)
[2019-02-07] MEDS ORDERED: *HR* Succinylcholine 200 MG/10 ML VIAL IVP ONE (07:35)
[2019-02-07] MEDS ORDERED: Lidocaine -MPF 2% 2 ML VIAL ONE (07:35)
[2019-02-07] MEDS ORDERED: Lidocaine -MPF 4% 5 ML AMPUL ONE (07:35)
[2019-02-07] MEDS ORDERED: *HR* Midazolam HCl 2 MG/2 ML VIAL ONE (07:36)
[2019-02-07] MEDS ORDERED: *HR* FentaNYL (PF) 100 MCG/2 ML VIAL ONE (07:36)
[2019-02-07] MEDS ORDERED: *HR* Propofol 200 MG/20 ML VIAL IVP ONE ×2 (07:37→12:10)
[2019-02-07] MEDS ORDERED: *HR* Remifentanil 1 MG VIAL IVP ONE ×3 (07:42→11:44)
[2019-02-07] MEDS ORDERED: Propofol 500 MG/50 ML INFUS..BTL ONE ×5 (07:45→11:44)
[2019-02-07] MEDS ORDERED: *HR* Phenylephrine 10 MG/ML VIAL ONE (07:46)
[2019-02-07] MEDS: Ringers Solution, Lactated 1,000 ML IVC SCH ×2 (07:53→11:39)
[2019-02-07] MEDS ORDERED: Scopolamine Patch 1.5 MG PATCH.TD72 TD ONE (07:54)
[2019-02-07] MEDS ORDERED: Gabapentin 300 MG CAPSULE PO ONE (07:54)
[2019-02-07] MEDS ORDERED: Albuterol 2.5 MG/3 ML NEBULIZER IH PRN (07:54)
[2019-02-07] MEDS ORDERED: Ondansetron 4 MG/2 ML VIAL IVP ONE (07:54)
[2019-02-07] MEDS ORDERED: Acetaminophen IV 1,000 MG/100 ML INFUS..BTL IVPB ONE (07:54)
[2019-02-07] MEDS ORDERED: *HR* Promethazine 25 MG/ML VIAL IVP PRN (07:54)
[2019-02-07] MEDS ORDERED: *HR* Labetalol 20 MG/4 ML SYRINGE IVP PRN (07:54)
[2019-02-07] MEDS ORDERED: *HR* OxyCODONE Immed Rel 5 MG TABLET PO PRN (07:54)
[2019-02-07] MEDS ORDERED: Famotidine 20 MG/2 ML VIAL IVP ONE (07:54)
--- NOTE | 2019-02-07 07:55 | History & Physical Report ---
Date of Encounter: 02/07/19 Time of Encounter: 07:54 24 Hour HP Update - Instructions Instructions: If the History and Physical is less than 30 days old and was completed prior to A.M. admission and or procedure and has NOT been updated on calendar day of procedure please complete this update prior to performing procedure. - Update Patient reports changes in Medical Condition: No Changes in examination, assessment, or condition: No Changes in Medication: No Preop tests/diagnostics Reviewed: Yes Pre-Op MRSA Screen: Negative Surgery Remains Indicated: Yes Consent for Planned Operative Procedure(s) Verified: Yes - Pre-Operative Checklist Preoperative Checklist Indicated: No Prophylactic Antibiotic Ordered: Yes Home Medications Include Beta Arcadio: No Beta Arcadio Taken Today (Day of Surgery): No Beta Arcadio Taken Yesterday (Day Prior to Surgery): No Is VTE Prophylaxis Indicated?: Yes
--- NOTE | 2019-02-07 07:56 | Anesthesia Evaluation PreOp ---
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 History: CVA (01/2018 held plavix 8 days, Upper extremity weakness stroke vs myelopathy), Other (chronic back pain, cervical myelopathy) Other Medical History: Diabetes Type II Anesthesia History: No Prior Anesthetic Complications, Past Anesthesia (Appy, R- shoulder tumor excision, Partial Hyst 2006, Robotic Viri) : No Alcohol Use: none Drug use: none Medications and Allergies Acetaminophen/Butalbital/Caffe [Fioricet] 1 tab PO Q4H PRN 02/07/19 [History] Amlodipine Besylate 5 mg PO DAILY 02/07/19 [History] Aspirin [Adult Aspirin] 81 mg PO DAILY 02/07/19 [History] Atorvastatin [Lipitor] 40 mg PO HS 02/07/19 [History] Clopidogrel [Plavix] 75 mg PO DAILY 02/07/19 [History] Dulaglutide [Trulicity] 1.5 mg SQ MO 02/07/19 [History] Losartan/Hydrochlorothiazide [Losartan-Hctz 100-25 mg Tab] 1 tab PO DAILY 02/07/19 [History] Pioglitazone HCl 45 mg PO DAILY 02/07/19 [History] Turmeric Root Extract [Turmeric] 500 mg PO DAILY 02/07/19 [History] Allergy/AdvReac Type Severity Reaction Status Date / Time rosuvastatin [From Crestor] Allergy Severe Hives Verified 02/07/19 07:06 cholestyramine AdvReac Mild Vomiting Verified 02/07/19 07:06 clarithromycin [From Biaxin] AdvReac Hives Verified 02/07/19 07:06 colesevelam [From WelChol] AdvReac Hives Verified 02/07/19 07:06 felodipine [From Plendil] AdvReac Hives Verified 02/07/19 07:06 moxifloxacin [From Avelox] AdvReac Hives Verified 02/07/19 07:06 oseltamivir [From Tamiflu] AdvReac Vomiting Verified 02/07/19 07:06 oxybutynin [From Ditropan] AdvReac Hives Verified 02/07/19 07:06 tolterodine [From Detrol] AdvReac Hives Verified 02/07/19 07:06 - Meds/Allergy Pre-op Review Medications Reviewed: Yes Allergies Reviewed: Yes Beta Blockers on Current Med List: No Anesthesia Results - Labs Laboratory Tests 02/01/19 02/01/19 02/01/19 09:40 09:40 09:40 WBC 7.9 Hgb 14.4 Hct 43.0 Plt Count 312 PT 10.4 INR 0.9 APTT 31.9 Sodium 136 Potassium 4.2 Chloride 101 Carbon Dioxide 25 BUN 20 Creatinine 0.68 Est GFR (Non-Af Amer) > 60 Hemoglobin A1c 02/01/19 09:40 WBC Hgb Hct Plt Count PT INR APTT Sodium Potassium Chloride Carbon Dioxide BUN Creatinine Est GFR (Non-Af Amer) Hemoglobin A1c 8.7 H - Imaging EKG: report reviewed Additional studies: 01/2018 echo Impressions: LVEF 60-65%. Borderline increased LV wall thickness. Mild left ventricular diastolic dysfunction. Definity echo contrast was used. RV size and function not well evaluated. Mild-moderate pulmonic regurgitation. No pulmonary hypertension by TR gradient. IVC is not well visualized. carotid 01/2018 Impressions: Findings: Right mid ICA has a severe, 60-79% stenosis. Findings: Left proximal ICA has a moderate, 40-59% stenosis. 01/2018 stress Impression: Exercise ECG is negative for ischemia. Chest discomfort reported during exercise. Gated EF > 70%. Perfusion imaging was negative for ischemia or infarct. Anesthesia Exam Vital Signs/O2 Sat/Glucose, Most Recent Temp Pulse Resp BP Pulse Ox 98.9 F 99 18 144/79 97 02/07/19 06:44 02/07/19 06:44 02/07/19 06:44 02/07/19 06:44 02/07/19 06:44 Blood Glucose* 190 Weight: 94 kg NPO (# of Hours): > 8 hr - HEENT Pupil (Motor): Pupils equal Teeth: Normal - LUMBER LOADER LOC: Oriented - Cardiac Rhythm: Regular Murmur: None - Pulmonary Breath Sounds: bilateral Clear Respiratory Effort: Symmetrical Anesthesia Assess/Plan ASA Score: 3 Level of consciousness: Cooperative, Oriented Anesthetic Plan: General Monitoring Plan: Standard Monitors Recovery Plan: PACU
[2019-02-07] MEDS ORDERED: Bacitracin 50,000 UNIT, Polymyxin B Sulfate 500,000 UNIT, Sodium Chloride IRRigation 1,... IR ONE (08:15)
[2019-02-07] MEDS ORDERED: *HR* PHENYLEPHRINE 1,000 MCG/10 ML SYRINGE IVP ONE (08:59)
[2019-02-07] MEDS ORDERED: Ondansetron 4 MG/2 ML VIAL ONE (09:57)
[2019-02-07] MEDS ORDERED: Dexamethasone 4 MG/ML VIAL ONE (09:57)
--- NOTE | 2019-02-07 12:32 | Orthopedic Operative Note ---
Date of procedure: 02/07/19 Pre-op diagnosis: Cervical stenosis, cervical myelopathy Post-op diagnosis: same Operation/Findings: Corpectomy C6, anterior cervical fusion C5-C7: The patient was brought to the operating room and placed supine on the operating room table. Successful general endotracheal anesthesia intubation was performed. Neurophysiologic monitoring personnel placed leads on the upper and lower extremities as well as the cranium for EMG monitoring purposes. Appropriate baseline potentials were noted by the neurophysiologic monitoring staff. Mendiola catheter was placed prior to positioning. Compression boots and stockings were placed for deep vein thrombosis prophylaxis. Padding was also placed all bony prominences including the ulnar nerve near the medial epicondyles of the elbows were appropriately padded. Mild traction was placed on the bilateral shoulders and taped into place. Preoperative antibiotics were administered. The area from the mandible bilaterally to the upper thoraces was prepped and draped in the usual sterile fashion. An oblique incision was made at the level of the cricoid cartilage which is approximately 3 cm in length and extended from the midline of the cervical spine laterally towards the sternocleidomastoid muscle on the left. It was 1 cm medial and parallel to the sternocleidomastoid muscle on the left. We then performed standard medial approach to the carotid sheath. Sponges were used to tease the fascial medial to the sternocleidomastoid muscle while carefully controlling and palpating the carotid artery. Using careful dissection we were able to get to the level of the anterior vertebral bodies and longus coli muscles. The spinal needle was placed at the appropriate C6-7 level, and intraoperative radiograph was obtained which was a cervical spine lateral radiograph. The needle and radiograph confirmed we were at the correct operative level. We further exposed this C6-7 level by using Bovie cautery under the medial edge of the longus colli muscles to allow them to be retracted approximately 2 mm laterally on each side. An 11 blade was used to perform anterior discectomy at the appropriate C6-7 level after an initial annulotomy of the anterior longitudinal ligament and annulus was performed. Further disc material was removed with pituitary Rongeurs. Subsequently, Synthes pins were placed at the C6 and C7 vertebral bodies respectively to provide distraction. We then used a Trimline cervical retractor which was placed in both medial and lateral as well as inferior superior direction to allow full visualization of the appropriate C6-7 disc and C6 and C7 vertebral bodies. The Leica microscope was brought to the field and the remainder of the procedure was performed under the guidance of this microscope. Using pituitary rongeurs and small curettes, various micro-instruments, a full discectomy was performed at the appropriate C6-C7 level. The posterior longitudinal ligament was encountered and appeared partially calcified. A portion of this ligament was removed. After complete and thorough discectomy and removal of spondylitic material was performed the endplates of the C6 and C7 vertebral bodies were prepared with a bur until allow bleeding of cancellous bone. We then turned our attention to the C5-6 level where a similar series of procedures was performed including discectomy, removal of spondylitic material, and end plate preparation. At this point the C5-6 and C6-7 interspaces were fully decompressed back to the posterior longitudinal ligament. This left intervening C6 vertebral body bone. We removed this vertebral body bone with Kerrison rongeurs and pituitary instruments. Bone obtained from this corpectomy portion of the procedure was saved for later use. We decompressed the Medardo posterior to the C6 vertebral body back to the posterior longitudinal ligament which was partially calcified. A portion of this ligament was also removed. We then measured this intervening space between the inferior endplate of C5 to the superior endplate of C7 with calipers. The appropriate size expandable cage ([employer]) was selected, packed with autograft bone, and placed under direct visualization and with the aid of fluorography into the C5-C7 decompressed space. When found to be in appropriate position the packaging designer was removed. We placed bone in areas outside of the expandable cage in the intervening space between C5 and C7. A 40mm cervical plate was then placed on the anterior aspect of the C5 and C7 vertebral bodies. The plate was placed in the midline position after drilling four 13 mm self tapping screws and inserting them. They were locked in place using standard Venture plate maneuvers. At this point a lateral radiograph of the cervical spine was obtained and showed satisfactory position of the expandable cage, pino t and plate. The wound was copiously irrigated and bleeders encountered were cauterized using Bovie cautery. Platysma was closed with interrupted 2-0 Vicryl sutures. Running 3-0 Monocryl suture was used for skin closure. Sterile dressing was placed over the neck wound. A cervical collar was placed. The patient was transferred to a hospital bed and extubated. The patient was noted to be fully motor and sensory intact in the recovery room at the end of the procedure. The medications. All sponge instrument and needle counts were correct at the end of the procedure. Anesthesia: GETA Surgeon: Jaiden Up Jr Was there an operations and intelligence assistant present: No Estimated blood loss (cc): 175 Specimen: None Condition: stable Disposition: PACU
[2019-02-07] MEDS: *HR* HYDROmorphone (PF) 1 MG/ML SYRINGE IVP PRN ×2 (13:03→13:08)
--- NOTE | 2019-02-07 13:51 | Anesthesia Evaluation Post Op ---
Date of Encounter: 02/07/19 Time of Encounter: 13:50 - Vital Signs Vital Signs: Vital Signs/O2 Sat/Glucose, Most Recent Temp Pulse Resp BP Pulse Ox 98.1 F 80 18 112/65 98 02/07/19 13:45 02/07/19 13:45 02/07/19 13:45 02/07/19 13:45 02/07/19 13:45 Blood Glucose* 190 - Lungs Lungs: Clear Ascult./Percussion - Airway Airway: Non-obstructed - Cardiovascular Regular Rate - Mental Status Mental Status: Alert & Oriented, Answers Appropriately - Pain Pain Scale: 2 - Nausea Vomiting Nausea Vomiting: Not Present - Hydration Hydration: NPO - Discharge PostOp Status: Transfer Patient to floor
--- NOTE | 2019-02-07 13:51 | Anesthesia Evaluation Post Op ---
Date of Encounter: 02/07/19 Time of Encounter: 13:49 - Vital Signs Vital Signs: Vital Signs/O2 Sat, Most Current Temp Pulse Resp BP Pulse Ox 98.1 F 80 18 112/65 98 02/07/19 13:45 02/07/19 13:45 02/07/19 13:45 02/07/19 13:45 02/07/19 13:45 - Lungs Lungs: Clear Ascult./Percussion - Airway Airway: Non-obstructed - Cardiovascular Regular Rate - Mental Status Mental Status: Alert & Oriented, Answers Appropriately - Pain Pain Scale: 3 Pain Scale used: Numeric (1 - 10) - Nausea Vomiting Nausea Vomiting: Not Present - Hydration Hydration: Ice chips, Mendiola catheter Notes: 02/07/19 13:50 denies complaints - Discharge PostOp Status: Transfer Patient to floor
[2019-02-07] MEDS ORDERED: Naloxone 0.4 MG/ML INJ IVP PRN (14:07)
[2019-02-07] MEDS ORDERED: Ondansetron 4 MG/2 ML VIAL IVP PRN (14:07)
[2019-02-07] MEDS ORDERED: *HR* HYDROcodone/Acet 5/325 mg TABLET PO PRN (14:07)
[2019-02-07] MEDS ORDERED: DULAGLUTIDE 1.5 MG SQ SCH (14:07)
[2019-02-07] MEDS ORDERED: Acetaminophen 325 MG TABLET PO PRN (14:07)
[2019-02-07] MEDS: *HR* OxyCODONE Immed Rel 5 MG TABLET PO PRN (21:38)
[2019-02-07] MEDS: amLODIPine 5 MG TABLET PO SCH (22:40)
[2019-02-08] MEDS: Ringers Solution, Lactated 1,000 ML IVC SCH ×2 (00:56→11:09)
[2019-02-08] MEDS: *HR* OxyCODONE Immed Rel 5 MG TABLET PO PRN ×2 (04:23→11:08)
[2019-02-08] MEDS ORDERED: Dextrose Gel 15 GM/37.5 ML TUBE PO PRN ×2 (06:15)
[2019-02-08] MEDS ORDERED: D5% in Water 1,000 ML IVC PRN (06:15)
[2019-02-08] MEDS ORDERED: *HR* Dextrose 50 % in Water (Syg) 50 ML SYRINGE IVP PRN (06:15)
[2019-02-08] MEDS: Insulin LISPRO 300 UNITS/3 ML VIAL SQ SCH ×2 (07:50→11:13)
[2019-02-08] MEDS ORDERED: *HR* Pioglitazone 45 MG TABLET PO SCH (08:00)
[2019-02-08] MEDS ORDERED: Turmeric Root Extract [Turmeric] 500 MG PO SCH (09:00)
[2019-02-08] MEDS ORDERED: Losartan/HCTZ 50-12.5 TABLET PO SCH (09:00)
[2019-02-08] MEDS ORDERED: Aspirin Enteric Coated 81 MG Tablet PO SCH (09:00)
[2019-02-08] MEDS ORDERED: amLODIPine 5 MG TABLET PO SCH ×2 (09:00→21:00)
--- NOTE | 2019-02-08 10:50 | Discharge Summary ---
Orders not resulted at time of discharge: Pending orders 02/07/19 XR cervical spine 1V [XR] Routine Date of Encounter: 02/08/19 Time of Encounter: 10:47 - Discharge Diagnosis (1) Cervical spinal stenosis Priority: Primary Status: Chronic (2) Cervical myelopathy Priority: Primary Status: Chronic (3) Status post cervical spinal fusion Priority: Primary Status: Acute - Hospital Course Hospital course: Ms. Escamilla is a 53 year old female s/p Date of procedure: 02/07/19 Pre-op diagnosis: Cervical stenosis, cervical myelopathy Post-op diagnosis: same Operation/Findings: Corpectomy C6, anterior cervical fusion C5-C7 The patient had an uneventful postoperative course. Progressed from intravenous analgesic needs to oral analgesic needs only. Remained neurovascularly intact and mobilized satisfactorily. All intraoperative and/or postoperative radiographic studies were satisfactory. Patient is discharged with plan for rehabilitation and follow-up in 2 weeks post discharge on analgesic medication and patient's home medications. - Time Spent with Patient Total time spent providing and/or coordinating discharge services: - Discharge Medications Prescriptions: New OxyCODONE Immed Rel [Roxicodone 5 MG] 5 mg PO Q6HR PRN 5 Days #20 tablet PRN Reason: Severe Pain Docusate Sodium [Colace] 100 mg PO BID 5 Days #10 capsule Continue Acetaminophen/Butalbital/Caffe [Fioricet] 1 tab PO Q4H PRN PRN Reason: Headache Amlodipine Besylate 5 mg PO DAILY Aspirin [Adult Aspirin] 81 mg PO DAILY Atorvastatin [Lipitor] 40 mg PO HS Clopidogrel [Plavix] 75 mg PO DAILY Dulaglutide [Trulicity] 1.5 mg SQ MO Losartan/Hydrochlorothiazide [Losartan-Hctz 100-25 mg Tab] 1 tab PO DAILY Pioglitazone HCl 45 mg PO DAILY Turmeric Root Extract [Turmeric] 500 mg PO DAILY Home Medications: Acetaminophen/Butalbital/Caffe [Fioricet] 1 tab PO Q4H PRN 02/07/19 [History] Amlodipine Besylate 5 mg PO DAILY 02/07/19 [History] Aspirin [Adult Aspirin] 81 mg PO DAILY 02/07/19 [History] Atorvastatin [Lipitor] 40 mg PO HS 02/07/19 [History] Clopidogrel [Plavix] 75 mg PO DAILY 02/07/19 [History] Dulaglutide [Trulicity] 1.5 mg SQ MO 02/07/19 [History] Losartan/Hydrochlorothiazide [Losartan-Hctz 100-25 mg Tab] 1 tab PO DAILY 02/07/19 [History] Pioglitazone HCl 45 mg PO DAILY 02/07/19 [History] Turmeric Root Extract [Turmeric] 500 mg PO DAILY 02/07/19 [History] Docusate Sodium [Colace] 100 mg PO BID 5 Days #10 capsule 02/08/19 [Rx] OxyCODONE Immed Rel [Roxicodone 5 MG] 5 mg PO Q6HR PRN 5 Days #20 tablet 02/08/19 [Rx] Allergies/Adverse Reactions: Allergy/AdvReac Type Severity Reaction Status Date / Time rosuvastatin [From Crestor] Allergy Severe Hives Verified 02/07/19 07:06 cholestyramine AdvReac Mild Vomiting Verified 02/07/19 07:06 clarithromycin [From Biaxin] AdvReac Hives Verified 02/07/19 07:06 colesevelam [From WelChol] AdvReac Hives Verified 02/07/19 07:06 felodipine [From Plendil] AdvReac Hives Verified 02/07/19 07:06 moxifloxacin [From Avelox] AdvReac Hives Verified 02/07/19 07:06 oseltamivir [From Tamiflu] AdvReac Vomiting Verified 02/07/19 07:06 oxybutynin [From Ditropan] AdvReac Hives Verified 02/07/19 07:06 tolterodine [From Detrol] AdvReac Hives Verified 02/07/19 07:06 Date of admission: 02/07/19 Primary care physician: Nilda Torre CNP Consults: 02/07/19 14:07 Consult to Physical Therapy [CONS] Routine Comment: Evaluate, develop and implement POC Reason for Consult: Postoperative rehabilitation Does patient have active BEDREST order?: No Is patient medically & hemodynamically stable?: Yes Patient assessed for mobility or mobilized this visit?: No Consult to Spine Navigator [CONS] [CONS] Routine 02/07/19 14:23 Consult to Pastoral Services [CONS] Routine Comment: Discharging clinician: Jaiden Up Jr Anticipated date of discharge: 02/08/19 - Stroke Is the patient on any antithrombotics?: No Are there any contradictions to antithrombotics?: Yes Contraindication Antithromb by Day Two: Not Indicated - Due to Bleeding Disorder or Risk of Bleeding - VTE Documentation of Mechanical Device: Intermittent pneumatic compression device Labs on day of discharge: Labs from last 24 hours 02/07/19 15:55 POC Glucose 275 H - Impressions ITS Impressions Fluoroscopy 02/07/19 00:00 IMPRESSION: Fluoroscopy was utilized for the purposes of anterior fusion from C5 through C7 with a C6 corpectomy. D/ / 02/07/2019 12:43:13 Gelacio Coats MD / [email or web address] Interpreting Provider: Gelacio Coats MD Cervical Spine X-Ray 02/08/19 08:33 IMPRESSION: 1. Expected new postoperative changes from C5 to C7 as above. 2. Widening of the prevertebral soft tissues likely due to postoperative edema. 3. Minimal to mild remnant cervical spine degenerative changes. D/ / Tony Zhu MD / Tony Zhu MD Interpreting Provider: Tony Zhu MD - Patient Status Disposition: Home, Self-Care Condition: Fair Functional capacity at discharge: uses cane/walker Overall status at discharge: patient is progressing back to baseline - Discharge Instructions Follow Up With: Nilda Torre, [employer] [Primary Care Provider] - Additional Instructions: Discharge Instructions: Cervical Please call [facility] ([phone]), your Primary Care Physician, or report to the ER if you have any of the following symptoms: Fever greater that 101.5, increased pain/redness/drainage/odor for your incision site or any other concerning symptoms. ACTIVITY * May Shower * No Tub Baths * No Smoking * No Swimming * No Driving * Wear Collar when up walking * Incentive Spirometer 10 times an hour MEDICATIONS: Upon discharge resume your home medications. Take all the medications as prescribed. Take a stool softener if taking narcotic pain medications. Stool softeners are only effective if you drink enough fluids. Drink 6-8 glass of water or fluids a day, unless this is not allowed for another health problem. Despite using stool softeners, if you haven't had a bowel movement in 3 days, please switch to a gentle laxative. Gentle laxatives are sold over the counter. You should have a bowel movement within 24 hours, if not call the office. You will be discharged from the hospital with a prescription for pain medication. You are encouraged to decrease the use of narcotic pain medication as tolerated. Should you require a refill, please call the office. It is best to call 48-72 hours in advance of needing a prescription refill so you don't run out of medication. WOUND CARE: Leave steri-strips in place until they fall off on their own. Pat dry when you get out of the shower. FOLLOW-UP: Please follow up with your surgeon in the orthopedic clinic in 2 weeks from the day of surgery. References: [employer] (www.apta.org) - Diet and Activity Activity: as per physical therapy Diet: advance to your usual diet
[2019-02-08] MEDS: amLODIPine 5 MG TABLET PO SCH (11:06)
[2019-02-08 11:13] VITALS: BP 129/76
[2019-02-08] MEDS ORDERED: Insulin LISPRO 300 UNITS/3 ML VIAL SQ SCH (21:00)
== END 2019-02-08 15:15 | disposition home or self-care (01) | DRG 472 ==
LOC: 3NENU 06:11 → SAMDAY 06:11 → 3NENU 08:00 → SAMDAY 02-08 15:15 → 3NENU 02-17 13:17
PROVIDERS: ADMIT Orthopaedic Surgery Orthopaedic Surgery of the Spine; ATTEND Orthopaedic Surgery Orthopaedic Surgery of the Spine
PROC: SPICORP (2019-02-07 08:15)